=== PATIENT | female | born 1980 | race Caucasian/White ===

== ENCOUNTER 2017-12-19 15:07 | Emergency (ER) | payer OTHER ==
[~2017-12-19] VITALS: Ht 172.7 cm; Wt 99.8 kg
--- NOTE | 2017-12-19 16:01 | NUR ---
Dr Dumont at the bedside for MSE.
[2017-12-19 16:05] VITALS: BP 121/66
--- NOTE | 2017-12-19 16:06 | NUR ---
Patient discharged to home in stable conditon. Written and verbal after care instructions given. Patient verbalizes understanding of instructions.
== END 2017-12-19 16:10 | disposition home or self-care (01) ==
LOC: ER 15:07
DX: I73.00 Raynaud's syndrome without gangrene (principal); J06.9 Acute upper respiratory infection, unspecified; Z88.0 Allergy status to penicillin; Z87.891 Personal history of nicotine dependence
CPT/HCPCS: A4663